=== PATIENT | female | born 1965 | race Two or more races ===

== ENCOUNTER 2025-11-20 13:19 | Emergency (ER) | payer MEDICAID, OTHER ==
[~2025-11-20] VITALS: Ht 165.1 cm; Wt 53.0 kg
[2025-11-20 13:32] VITALS: O2SAT 99
[2025-11-20 14:57] LABS: BASOPHILS % 0.7 % (0.0-2.0); EOSINOPHILS % 0.6 % (0.0-5.0); HEMATOCRIT. 35.4 % (36.0-48.0); HEMOGLOBIN. 11.9 g/dL (12.0-16.0); LYMPHOCYTES % 22.3 % (20.0-50.0); MEAN PLATELET VOLUME 9.7 fl (7.4-10.4); MONOCYTES % 5.3 % (2.0-8.0); NEUTROPHILS % 71.1 % (40.0-76.0); PLATELET 397 x1000/uL (130-400); RED BLOOD CELL COUNT 4.00 mill/uL (4.2-5.4); RED CELL DISTRIBUTION WIDTH 14.2 % (11.6-14.6)
[2025-11-20 15:09] LABS: CREATININE 0.8 mg/dL (0.6-1.0); UREA NITROGEN BLOOD 17 mg/dL (9-23)
[2025-11-20] MEDS ORDERED: METF-414 MT (16:47)
[2025-11-20 17:21] VITALS: BP 118/69; PULSE 78; RESP 18; TEMP 36.7; O2SAT 99
[2025-11-20] MEDS: INSULIN REGULAR (HUMULIN R) 1000UNITS/10ML VIAL IV ONE (17:22)
== END 2025-11-20 17:45 | disposition home or self-care (01) ==
LOC: ER 13:19
DX: E11.65 Type 2 diabetes mellitus with hyperglycemia (principal); Z98.890 Other specified postprocedural states
CPT/HCPCS: 99283; 96374; 80048; 82010; 82962; 85025; 36415; J1815